=== PATIENT | female | born 1955 | race Caucasian/White ===

== ENCOUNTER 2024-04-09 11:05 | Day surgery (SDC) | payer MEDICARE ==
[2024-04-03 15:56] LABS: BASOPHILS # (AUTO) 0.1 X10'3 (0-0.2); BASOPHILS % (AUTO) 0.8 % (0-1); EOSINOPHILS # (AUTO) 0.3 X10'3 (0-0.9); EOSINOPHILS % (AUTO) 3.5 % (0-6); LYMPHOCYTES # (AUTO) 1.6 X10'3 (1.1-4.8); MEAN CORPUSCULAR HEMOGLOBIN 30.3 PG (27.0-31.0); MEAN CORPUSCULAR HGB CONC 33.5 g/dL (33.0-36.5); MEAN CORPUSCULAR VOLUME 90.3 FL (78-98); MEAN PLATELET VOLUME 8.6 FL (7.4-10.4); MONOCYTES # (AUTO) 0.8 X10'3 (0-0.9); MONOCYTES % (AUTO) 9.5 % (2-12); NEUTROPHILS # (AUTO) 5.4 X10'3 (1.8-7.7); NEUTROPHILS % (AUTO) 66.2 % (42-75); PRE OP HEMATOCRIT 39.6 % (35.0-45.0); PRE OP HEMOGLOBIN 13.3 g/dL (12.0-16.0); PRE OP PLATELET COUNT 200 X10'3 (140-440); PRE OP WHITE BLOOD COUNT 8.1 10'3 (4.8-10.8); RED BLOOD COUNT 4.38 X10'6 (4.20-5.60); RED CELL DISTRIBUTION WIDTH 14.1 % (11.5-14.5)
[2024-04-03 16:17] LABS: PRE OP PROTIME 10.3 SECONDS (9.0-12.0)
[2024-04-03 16:22] LABS: ALBUMIN 3.9 G/DL (3.4-5.0); ALKALINE PHOSPHATASE 93 IU/L (46-116); BLOOD UREA NITROGEN 17 MG/DL (7-18); BUN/CREATININE RATIO 15.2 (10.0-20.0); CALCIUM 9.4 MG/DL (8.5-10.1); CHLORIDE 103 MMOL/L (99-107); CREATININE 1.12 MG/DL (0.40-0.90); PRE OP ALT 25 U/L (30-65); PRE OP ANION GAP 5 (8-16); PRE OP AST 21 U/L (10-37); PRE OP BILIRUB, TOTAL 0.7 MG/DL (0.0-1.0); PRE OP GLUCOSE 123 MG/DL (70-104); PRE OP POTASSIUM 3.9 MMOL/L (3.4-5.1); PRE OP SODIUM 139 MMOL/L (135-145); TOTAL CARBON DIOXIDE 30.7 MMOL/L (24-32); TOTAL PROTEIN 7.8 G/DL (6.4-8.2); eGFR 48 ML/MIN
[~2024-04-09] VITALS: Ht 157.5 cm; Wt 75.7 kg
[2024-04-09] VITALS (16 sets, daily range): BP systolic 125–174; BP diastolic 60–94; PULSE 61–79; RESP 10–22; TEMP 98.4; O2SAT 95–100
[2024-04-09] MEDS: gentamicin inj 300 MG in normal saline 100ml IV soln 100 ML IV ONE (05:30)
[~2024-04-09 11:05] MED LIST: ACYC-126 PO; ATOR10TA70 PO; PARO10TA4 PO
[2024-04-09] MEDS: HYDROmorphone inj. 0.5 MG/0.5 ML DISP.SYRIN IV ONE (11:39)
[2024-04-09] MEDS: famotidine 20mg tablet PO ONE (11:58)
[2024-04-09] MEDS: clindamycin-Cleocin 900mg/D5W 50 ML IV ONE (11:59)
[2024-04-09] MEDS: ringers solution, lacted 1,000 ML IV SCH (11:59)
[2024-04-09] MEDS: BUPIVAcaine 2.5mg/ml inj 50ml vial (contains preservative) ONE (12:00)
[2024-04-09] MEDS ORDERED: sevoflurane 250ml liquid IH ONE (12:20)
[2024-04-09] MEDS ORDERED: propofol inj 20 ML IV ONE (12:38)
[2024-04-09] MEDS ORDERED: fentaNYL/PF 50MCG/1 ML 2ML syringe ONE ×2 (12:38→14:15)
[2024-04-09] MEDS ORDERED: LIDOcaine 2% (20mg/ml) 5ml vial ONE (12:38)
[2024-04-09] MEDS ORDERED: ondansetron/PF 4mg/2ml inj ONE (12:38)
[2024-04-09] MEDS ORDERED: dexamethasone sod phosphate 4mg/ml inj. ONE (12:38)
[2024-04-09] MEDS ORDERED: meperidine/PF 25mg/ml syringe IV PRN ×3 (14:30)
[2024-04-09] MEDS ORDERED: enalaprilat dihydrate 2.5mg/2ml vial IV PRN (14:30)
[2024-04-09] MEDS ORDERED: ondansetron/PF 4mg/2ml inj IV PRN (14:30)
[2024-04-09] MEDS ORDERED: labetalol 20mg/4ml (5mg/ml) syringe IV PRN (14:30)
[2024-04-09] MEDS ORDERED: ringers solution, lacted 1,000 ML IV SCH (14:30)
[2024-04-09] MEDS ORDERED: proCHLORperazine 10 MG/2 ml inj IV PRN (14:30)
[2024-04-09] MEDS ORDERED: morphine 2 MG/ML inj. syringe IV PRN (14:30)
[2024-04-09] MEDS ORDERED: morphine 4 MG/ML inj SYRINge IV PRN (14:30)
== END 2024-04-09 16:22 | disposition home or self-care (01) ==
LOC: PAS 11:05
PROVIDERS: ATTEND Surgery
DX: C50.911 Malignant neoplasm of unspecified site of right female breast (principal); Z79.899 Other long term (current) drug therapy; E78.5 Hyperlipidemia, unspecified; Z88.0 Allergy status to penicillin; Z88.8 Allergy status to other drugs, medicaments and biological substances; F41.9 Anxiety disorder, unspecified; Z98.890 Other specified postprocedural states; Z79.01 Long term (current) use of anticoagulants
CPT/HCPCS: 19301; 36415; 38525; 38790; 76098; 80053; 82948; 85025; 85610; 85730; 93005; A4215; A4618; A6258; A7000; J1100; J1580; J2001; J2405; J2704; J3010; J3490; J7030; J7120; Z7506; Z7508; Z7512; Z7610; 88307; 88342